=== PATIENT | female | born 1990 | race Caucasian/White ===

== ENCOUNTER 2017-11-25 08:31 | Emergency (ER) | payer OTHER ==
[~2017-11-25] VITALS: Ht 162.6 cm; Wt 72.6 kg
[2017-11-25 09:14] LABS: CALCIUM 8.9 mg/dL (8.5-10.1); CREATININE 0.7 mg/dL (0.6-1.3)
[2017-11-25 11:24] VITALS: BP 134/95
== END 2017-11-25 11:25 | disposition home or self-care (01) ==
LOC: M.ERS 08:31
PROVIDERS: Emergency Medicine Emergency Medical Services
DX: J02.9 Acute pharyngitis, unspecified (principal)